=== PATIENT | male | born 1965 | race Caucasian/White ===

== ENCOUNTER 2022-09-15 02:16 | Emergency (ER) | payer OTHER, SELFPAY ==
--- NOTE | ~2022-09-15 | CT_ITS ---
EXAMINATION: NONCONTRAST HEAD CT NONCONTRAST CERVICAL SPINE CT INDICATION INFORMATION: Fall COMPARISON: None TECHNIQUE: Separate noncontrast CT examinations of the head and cervical spine were performed. Coronal and sagittal images were created for each examination at the technologist workstation. This CT examination was performed using dose optimization techniques as appropriate, variously including the following: *Automated exposure control *Adjustment of mA and/or kV according to patient size (this includes techniques or standardized protocols for targeted exams where dose is matched to indication/reason for exam; i.e. extremities or head) *Use of iterative reconstruction technique DLP: 1184 mGy-cm FINDINGS: Head: There is no evidence of acute intracranial hemorrhage or territorial infarction. No abnormal mass effect or midline shift is seen. Khan to white matter differentiation is well preserved. No extra-axial fluid collections are identified. No hydrocephalus. No significant volume loss. There is no abnormal attenuation within the brain parenchyma. No acute osseous or soft tissue abnormality. The mastoid air cells are well aerated. Moderate opacification of the maxillary sinuses. Near completely opacified ethmoid air cells. Cervical spine: There is anatomic alignment of the vertebral bodies and posterior elements. The atlantoaxial and atlantooccipital articulations are intact. Vertebral body heights are maintained. There is multilevel intervertebral disc space narrowing with endplate osteophyte formation and facet arthropathy. No evidence of acute fracture. No prevertebral soft tissue swelling. Mild paraseptal emphysema at the lung apices. The thyroid gland is unremarkable. CT/CT cervical spine wo IV con IMPRESSION: 1. No acute intracranial finding. 2. No acute fracture or malalignment of the cervical spine. Mild degenerative change.
[2022-09-15 02:28] VITALS: BP 110/60; BP 127/66; PULSE 65; PULSE 93; RESP 20; TEMP 36.6; O2SAT 95; O2SAT 96; BMI 31.8
[2022-09-15 02:31] LABS: Glucose, Whole Blood 176 mg/dL (60-115)
--- NOTE | 2022-09-15 02:47 | ED_ITS ---
HPI - Fall General Chief Complaint: Fall Stated Complaint: FALL Time Seen by Provider: 09/15/22 02:42 Source: patient Mode of arrival: EMS Limitations: no limitations History of Present Illness HPI Narrative: Patient otherwise healthy had few drinks earlier today was going downstairs in the basement lost balance and fell about 12 steps comes here with blue ecchymosis around the right eye no nose bleed loss of consciousness++ no vomiting no focal deficit no back pain no abdominal pain no chest pain patient alert oriented x3 GCS 15 Related Data Allergies Allergy/AdvReac Type Severity Reaction Status Date / Time No Known Allergies Allergy Verified 09/15/22 02:47 Review of Systems Review of Systems: Yes all other systems are reviewed and are negative [facility] Social History Social History Advance Directives: No Physical Exam Vital Signs: Vital Signs: Last Vital Signs Temp 97.9 F 09/15/22 02:28 Pulse 93 09/15/22 02:28 Resp 20 09/15/22 02:28 BP 127/66 09/15/22 02:28 Pulse Ox 96 09/15/22 02:28 O2 Del Method 09/15/22 02:28 BMI result Body Mass Index 31.8 Appearance: Alert. Oriented X3. No acute distress. ETOH ++ Eyes: PERRLA, No Nystagmus HEENT: Pharynx normal. Oral Mucosa moist ecchymosis of right periorbital area and abrasion on lateral aspect of eyebow Neck: Normal inspection. Neck supple. In cervical collar CVS: Normal heart rate and rhythm. Pulses normal. Respiratory: No respiratory distress. Equal air entry bilateral, no wheezing/rales/rhonchi Abdomen: Soft and nontender. Bowel sounds are present, no mass palpable, no CVA tenderness Skin: Skin warm and dry. Normal skin color. Normal skin turgor. Extremities: No lower extremity edema. No calf tenderness Neuro: Oriented X 3. No motor deficit. No sensory deficit.No cerebellar signs , cranial nerves II-XII intact Procedures FAST Exam FAST Exam 1: Fluid in Morison's pouch: No Fluid in Splenorenal Junction: No Fluid around bladder, Transverse view: No Fluid around bladder, Sagittal view: No Fluid in Pericardial Sac: No Gross Wall Motion Abnormality: No Study normal for this patient: Yes Images saved for further review: No Medical Decision Making Medical Decision Making [facility] Narrative: Patient status post mechanical fall head CT C-spine CT negative labs are stable fast exam of the abdomen was also negative discharge patient home patient ambulating steady gait Lab Data [facility] Lab Attestation statement: I reviewed the patient's lab results. 09/15/22 02:43 09/15/22 02:43 Labs: Lab Results 09/15/22 09/15/22 09/15/22 Range/Units 02:27 02:43 02:43 WBC 17.3 H (4.8-10.8) X10*3/uL RBC 4.94 (4.60-5.80) X10*6/uL Hgb 14.7 (14.0-18.0) g/dl Hct 42.4 (42.0-52.0) % MCV 85.8 (80.0-98.0) fL MCH 29.8 (27.0-33.0) pg MCHC 34.7 (31.0-36.0) g/dl RDW 12.8 (11.0-16.0) % Plt Count 273 (160-400) X10*3/uL MPV 9.5 (9.4-12.4) fL Immature Gran % (Auto) 0.5 H (0.0-0.4) % Neut % (Auto) 82.2 H (45-73) % Lymph % (Auto) 10.5 L (20-40) % Howell % (Auto) 5.6 (2-11) % Eos % (Auto) 0.7 (0-4) % Baso % (Auto) 0.5 (0-2) % Lymph # (Auto) 1.8 (1.2-4.9) X10*3/uL Howell # (Auto) 1.0 (0.1-1.2) X10*3/uL Eos # (Auto) 0.1 (0.0-0.4) X10*3/uL Baso # (Auto) 0.1 (0.0-0.2) X10*3/uL Abs Immat Gran (auto) 0.08 H (0.00-0.03) X10*3/uL Absolute Neuts (auto) 14.2 H (2.0-8.3) x10*3/uL Absolute Nucleated RBC 0.000 (0.0-0.012) X10*3/uL Nucleated RBC % (auto) 0.0 (0.0-0.2) /100WBC Sodium 138 (135-145) mmol/L Potassium 3.8 (3.3-5.1) mmol/L Chloride 104 (96-108) mmol/L Carbon Dioxide 15 L (22-29) mmol/L Anion Gap 23 H (12-20) BUN 17 H (9-16) mg/dL Creatinine 0.98 (0.5-1.4) mg/dL Estim Creat Clear Calc 98.9 Estimated GFR > 60 POC Glucose 176 H (60-115) mg/dL Random Glucose 162 H (60-115) mg/dL Calcium 8.9 (8.4-10.2) mg/dL Total Bilirubin 0.4 (0.0-1.0) mg/dL AST 24 (5-37) U/L ALT 38 (0-40) U/L Alkaline Phosphatase 67 (39-117) U/L Total Protein 6.6 (6.5-8.0) g/dL Albumin 4.2 (3.5-5.0) g/dL Ethyl Alcohol 73 mg/dL Discharge Plan Discharge Clinical Impression: Fall (on) (from) other stairs and steps, initial encounter Patient Disposition: Home, Self-Care Instructions: Head Injury (ED), Fall Prevention (ED) Additional Instructions: Care as advised Follow-up with the PCP if any concerns
[2022-09-15 02:51] LABS: Basophils Absolute Auto 0.1 X10*3/uL (0.0-0.2); Basophils Percent Auto 0.5 % (0-2); Eosinophils Absolute Auto 0.1 X10*3/uL (0.0-0.4); Eosinophils Percent Auto 0.7 % (0-4); Hematocrit 42.4 % (42.0-52.0); Hemoglobin 14.7 g/dl (14.0-18.0); Imm Gran Abs Auto 0.08 X10*3/uL (0.00-0.03); Imm Gran Pct Auto 0.5 % (0.0-0.4); Lymphocytes Absolute Auto 1.8 X10*3/uL (1.2-4.9); Lymphocytes Percent Auto 10.5 % (20-40); MANUAL DIFF FLAG NO; Mean Corpuscular HGB Conc 34.7 g/dl (31.0-36.0); Mean Corpuscular Hemoglobin 29.8 pg (27.0-33.0); Mean Corpuscular Volume 85.8 fL (80.0-98.0); Mean Platelet Volume 9.5 fL (9.4-12.4); Monocytes Percent Auto 5.6 % (2-11); Neutrophils Absolute Auto 14.2 x10*3/uL (2.0-8.3); Neutrophils Percent Auto 82.2 % (45-73); Platelet Count 273 X10*3/uL (160-400); Red Blood Count 4.94 X10*6/uL (4.60-5.80); Red Cell Distribution Width 12.8 % (11.0-16.0); White Blood Count 17.3 X10*3/uL (4.8-10.8)
[2022-09-15 03:06] LABS: Alanine Aminotransferase 38 U/L (0-40); Albumin Level 4.2 g/dL (3.5-5.0); Alkaline Phosphatase 67 U/L (39-117); Anion Gap 23 (12-20); Aspartate Amino Transferase 24 U/L (5-37); Bilirubin Total 0.4 mg/dL (0.0-1.0); Blood Urea Nitrogen 17 mg/dL (9-16); Calcium 8.9 mg/dL (8.4-10.2); Carbon Dioxide 15 mmol/L (22-29); Chloride 104 mmol/L (96-108); Creatinine Clr Calc Pharmacy 98.9; Estimated Glomerular Filt Rate > 60; Ethanol 73 mg/dL; Glucose Random 162 mg/dL (60-115); Potassium 3.8 mmol/L (3.3-5.1); Sodium 138 mmol/L (135-145); Total Protein 6.6 g/dL (6.5-8.0)
--- NOTE | 2022-09-15 03:15 | PC.NURSE ---
Pt A&Ox4, reports falling down approximately 12 steps, Pt states I got too drunk , + LOC/head strike. C-collar placed by EMS. Pt has small lac to R eyebrow and bridge of nose. IV placed, lab work collected and sent to lab. VSS.
[2022-09-15 04:00] VITALS: BP 123/69; PULSE 80; RESP 16; O2SAT 97
--- OUTSIDE RECORDS SUMMARY | 2022-09-15 04:01 | XMS_ITS ---
:12/22/1964 Author Allergies Code Code System Name Reaction Severity Status Onset NKDA ? Medications Name Status Start Date Stop Date ? ? allopurinol 100 mg tablet Completed ? 2021 amoxicillin 875 mg tablet Active ? Not av ailable Take 1 tablet every 12 hours by oral route for 7 days. amoxicillin 875 mg-potassium clavulanate 125 mg tablet Completed ? 07/09/2021 colchicine 0.6 mg tablet Active ? Not stephen ilable TAKE 1 TABLET BY MOUTH EVERY DAY doxycycline monohydrate 100 mg tablet Active ? Not available TAKE 1 TABLET BY MOUTH TWICE A DAY fluticasone propionate 50 mcg/actuation nasal Completed ? 07/09/2021 spray,suspension levocetirizine 5 mg tablet Active ? Not a vailable losartan 50 mg tablet Active ? Not availa ble TAKE 1 TABLET BY MOUTH EVERY DAY meloxicam 7.5 mg tablet Completed ? 07/09/19 22 metformin 1,000 mg tablet Completed ? 2021 quinapril 20 mg tablet Completed ? 2 simvastatin 40 mg tablet Completed ? 022 Problems Name Status Onset Date Source ? Diabetes Mellitus Active 07/09/2021 ? Hypercholesterolemia Active 07/09/2021 ? Hypertensive Disorder Active 07/09/2021 ? Maxillary Sinus Pain Active 04/18/2022 ? Procedures None recorded. Results Lab Results None recorded. Past Encounters Encounter Date Diagnosis Provider 06/18/2022 Acute Sinusitis Adrián Michelle Gamble MD: [address] [address], [place] [address], Ph. [phone] 04/18/2022 Acute Sinusitis Dio Washington NP: [address] [address], [place] [address], Ph. [phone] 07/09/2021 Suspected COVID-19 Carmina Contreras NP: [address] [address], [place] [address], Ph. [phone] Social History Tobacco Smoking Status Current Every Day Smoker Vaccine List None recorded. Plan of Care Patient Instructions Follow up with your doctor in 7 days. Se ek medical care immediately if condition worsens or changes. Some things to watch out for include: fever worsening sinus pain, headache, stiff neck dizziness. no improvement after 48 hours. ??? If there are any issues or questions, bao campos contact us at [phone]. Ask your pharmacist to check for any med ication interactions (with our prescribed medications and your current medications) and call us with any concerns. 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 Report any fevers over 101. Push fluids and rest. Sinus rinses such as a Nedi Pot can be beneficial. Return if not improving w ithin 48 to 72 hours after beginning antibiotics. Report any shortness of amberly ath or concerns. Go to Urgent Care or Emergency Room if this occurs. It was gr eat to speak with you today. I hope I was able to answer all your questions. If yo u need anything else, we are here for you 20/01! Great to speak with you today. I hope I was able to answer all your questions. If yo u need anything else, we are here for you 20/01! Reminders Provider Appointments None recorded. ? ? Lab None recorded. ? ? Referral None recorded. ? ? Procedures None recorded. ? ? Surgeries None recorded. ? ? Imaging None recorded. ? ? Vitals 04/18/2022 04:30PM Consult Height Weight BMI 5 ft 10 in 210 lbs 30.1 kg/m2 07/09/2021 06:00PM Consult Height Weight BMI 5 ft 10 in 210 lbs 30.1 kg/m2
--- OUTSIDE RECORDS SUMMARY | 2022-09-15 04:01 | XMS_ITS ---
:12/22/1964 Author Care Team Providers Name Role Phone BING STRATTON MD Primary Care Provider [phone] Allergies Code Code System Name Reaction Severity Status Onset NKDA ? Medications Name Status Start Date Stop Date ? ? amoxicillin 875 mg-potassium clavulanate 125 mg tablet Active ? Not available Take 1 tablet every 12 hours by oral route for 10 days. Flonase Allergy Relief 50 mcg/actuation nasal spray,suspension A ctive ? Not available [place] 1 spray every day by intranasal route. metformin Active ? Not available quinapril Active ? Not available Problems Name Status Onset Date Source ? Diabetes Mellitus Active ? ? Procedures Notes: sinus surgery foot surgery knee surgery Results Lab Results Date Name Specimen Result Interpretation Description Value Range Status Address ? 02/15/2021 SARS CoV 2 NASOPHARYNGEAL Normal Sars negative negati ve Final Cmd Lab: RNA SWAB Cov 2, 1225 (COVID-19), RT-PCR [place], shovel engineer-PCR, Ave, Respiratory [place] ? Rapid SARS ? Rapid NEGATIVE ? ? Cmdn y_ CoV 2 Ag, QL COVID-1 (internal [place]: [place], 9 control 2459 Respiratory Antigen positive) M ernesto Specimen / Rd, [facility] [place] l Control Positiv e Past Encounters None recorded. Social History Tobacco Smoking Status Current Every Day Smoker Vaccine List None recorded. Plan of Care Reminders Provider Appointments None recorded. ? ? Lab None recorded. ? ? Referral None recorded. ? ? Procedures None recorded. ? ? Surgeries None recorded. ? ? Imaging None recorded. ? ? Vitals None recorded.
--- OUTSIDE RECORDS SUMMARY | 2022-09-15 04:01 | XMS_ITS | Encounter Summary ---
:12/22/1964 Author Reason for Visit Review medical problems Assessment and Plan 1. Acute sinusitis ? amoxicillin 875 mg tablet Discussion Note This was a telemedicine clinician-patie nt encounter. All information was collected through conversation and/or video chat. The patient has consented to this type of visit. Patient educational handouts: No information available. Plan of Care Patient Instructions Follow up with your doctor in 7 days. Se ek medical care immediately if condition worsens or changes. Some things to watch out for include: fever worsening sinus pain, headache, stiff neck dizziness. no improvement after 48 hours. ??? If there are any issues or questions, pl andres contact us at [phone]. Ask your pharmacist to check for any med ication interactions (with our prescribed medications and your current medications) and call us with any concerns. Reminders Provider Appointments None recorded. ? ? Lab None recorded. ? ? Referral None recorded. ? ? Procedures None recorded. ? ? Surgeries None recorded. ? ? Imaging None recorded. ? ? Medications Name Start Date ? ? amoxicillin 875 mg tablet ? Take 1 tablet every 12 hours by oral route for 7 days . colchicine 0.6 mg tablet ? TAKE 1 TABLET BY MOUTH EVERY DAY doxycycline monohydrate 100 mg tablet ? TAKE 1 TABLET BY MOUTH TWICE A DAY levocetirizine 5 mg tablet ? losartan 50 mg tablet ? TAKE 1 TABLET BY MOUTH EVERY DAY Medications Administered None recorded. Vitals None recorded. Results Lab Results None recorded. Allergies Code Code System Name Reaction Severity Onset NKDA ? ? ? Problems Name Status Onset Date Source ? Diabetes Mellitus Active 07/09/2021 ? Hypercholesterolemia Active 07/09/2021 ? Hypertensive Disorder Active 07/09/2021 ? Maxillary Sinus Pain Active 04/18/2022 ? Procedures None recorded. Vaccine List None recorded. Social History Tobacco Smoking Status Current Every Day Smoker Functional Status Unknown. Past Encounters Encounter Date Diagnosis Provider 06/18/2022 Acute Sinusitis Adrián Gamble MD: [address] [address], [place] [address], Ph. [phone] History of Present Illness Note: 57 year old male in [place] with eight days of sinus pain and congestion mostly in the right frontal sinus area. using flonase. No fever. No other symptoms. He has seen ENT and he may need sinus surgery in the future, patient states. last sinus infection treated with doxycyline 2 months ago. No other concerns. Past medical history - borderline DM, hyperlipidemia, htn. nkda. Review of Systems: ROS as noted in the HPI Review of Systems None recorded. Physical Exam ? [facility] Exam Reported By: Patient Notes: Video Virtual Consultation. Answering questions appropriately Well appearing No acute distress Breathing comfortably.
== END 2022-09-15 04:00 | disposition home or self-care (01) ==
PROVIDERS: Emergency Provider Internal Medicine
DX: S09.90XA Unspecified injury of head, initial encounter (principal); R51.9 Headache, unspecified; M54.2 Cervicalgia; F10.129 Alcohol abuse with intoxication, unspecified; Y90.3 Blood alcohol level of 60-79 mg/100 ml; W10.9XXA Fall (on) (from) unspecified stairs and steps, initial encounter; Y93.9 Activity, unspecified; Y92.9 Unspecified place or not applicable; Y99.9 Unspecified external cause status; Z79.899 Other long term (current) drug therapy
CPT/HCPCS: 36415; 70450; 72125; 80053; 82077; 82947; 85025; 99284